=== PATIENT | male | born 1995 | race Caucasian/White ===

== ENCOUNTER 2023-04-28 20:01 | Emergency (ER) | payer OTHER ==
[~2023-04-28] VITALS: Ht 172.7 cm; Wt 99.8 kg
--- NOTE | 2023-04-28 20:20 | ED Chest Pain ---
General Chief Complaint: Chest Pain Stated Complaint: LIGHT HEADED/CLAMMY Source: patient Exam Limitations: no limitations (TEREZA BONILLA APRN) History of Present Illness Date Seen by Provider: Apr 28, 2023 Time Seen by Provider: 20:08 Initial Comments 28-year-old male presents to the ER with complaints of chest pain for the last 3 days. He states his chest feels like he is being squeezed from each side. He states that tonight while eating the pain became worse. He reports he started sweating and then felt cold. [place] as though he had a fever. He also reports shortness of air and nausea. Denies vomiting. States that he has been working out in the heat for the last 3 days. He denies abdominal pain, diarrhea. He has taken some ibuprofen for his chest pain which has helped a little bit. Past medical history includes asthma and anxiety. He denies tobacco, drug, and alcohol use. (TEREZA BONILLA APRN) Allergies and Home Medications Allergies Coded Allergies: No Known Drug Allergies (Unverified , 04/28/23) Patient Home Medication List Home Medication List Reviewed: Yes (TEREZA BONILLA APRN) Hydroxyzine HCl (Hydroxyzine HCl) 25 Mg Tablet, 25 MG PO TID Prescribed by: Tereza Bales on 04/28/232246 Omeprazole (Omeprazole) 20 Mg Capsule.dr, 20 MG PO DAILY Prescribed by: Tereza Bales on 04/28/232246 Review of Systems Review of Systems Constitutional: see HPI (TEREZA BONILLA APRN) Physical Exam Vital Signs Vital Signs - First Documented 04/28/23 20:13 Temp 37.0 Pulse 100 Resp 24 B/P (MAP) 137/99 (112) Pulse Ox 99 (YUN WILL MD) Vital Signs Capillary Refill : (TEREZA BONILLA APRN) Height, Weight, BMI Height: '" Weight: lbs. oz. kg; BMI Method: General Appearance: WD/WN, Mild Distress Neck: Normal Inspection, Supple Respiratory: Lungs Clear, Normal Breath Sounds, No Accessory Muscle Use, No Respiratory Distress, Other (Significant tenderness when palpating entire chest) Cardiovascular: Tachycardia Extremity: Normal Inspection, Normal Range of Motion Neurologic/Psychiatric: Alert, Normal Mood/Affect Skin: Normal Color, Other (Clammy) (IRENE,TEREZA R ALINA) Progress/Results/Core Measures Results/Orders Lab Results Laboratory Tests Test 04/28/23 20:25 04/28/23 20:36 04/28/23 22:14 Range/Units White Blood Count 14.0 H 4.3-11.0 10^3/uL Red Blood Count 5.22 4.30-5.52 10^6/uL Hemoglobin 14.8 13.3-17.7 g/dL Hematocrit 44 40-54 % Mean Corpuscular Volume 84 80-99 fL Mean Corpuscular Hemoglobin 28 25-34 pg Mean Corpuscular Hemoglobin Concent 34 32-36 g/dL Red Cell Distribution Width 13.3 10.0-14.5 % Platelet Count 221 130-400 10^3/uL Mean Platelet Volume 10.1 9.0-12.2 fL Immature Granulocyte % (Auto) 1 % Neutrophils (%) (Auto) 52 42-75 % Lymphocytes (%) (Auto) 34 12-44 % Monocytes (%) (Auto) 9 0-12 % Eosinophils (%) (Auto) 4 0-10 % Basophils (%) (Auto) 1 0-10 % Neutrophils # (Auto) 7.4 1.8-7.8 10^3/uL Lymphocytes # (Auto) 4.7 H 1.0-4.0 10^3/uL Monocytes # (Auto) 1.3 H 0.0-1.0 10^3/uL Eosinophils # (Auto) 0.6 H 0.0-0.3 10^3/uL Basophils # (Auto) 0.1 0.0-0.1 10^3/uL Immature Granulocyte # (Auto) 0.1 0.0-0.1 10^3/uL Neutrophils % (Manual) 47 % Lymphocytes % (Manual) 44 % Monocytes % (Manual) 4 % Eosinophils % (Manual) 4 % Reactive Lymphocytes 1 % Platelet Estimate ADEQUATE Blood Morphology Comment NORMAL Prothrombin Time 13.3 12.2-14.7 SEC INR Comment 1.0 0.8-1.4 Activated Partial Thromboplast Time 32 24-35 SEC D-Dimer 0.28 0.00-0.49 UG/ML Sodium Level 140 135-145 MMOL/L Potassium Level 3.6 3.6-5.0 MMOL/L Chloride Level 107 98-107 MMOL/L Carbon Dioxide Level 22 21-32 MMOL/L Anion Gap 11 5-14 MMOL/L Blood Urea Nitrogen 10 7-18 MG/DL Creatinine 1.11 0.60-1.30 MG/DL Estimat Glomerular Filtration Rate 94 BUN/Creatinine Ratio 9 Glucose Level 88 70-105 MG/DL Calcium Level 9.4 8.5-10.1 MG/DL Corrected Calcium 8.5-10.1 MG/DL Magnesium Level 2.1 1.6-2.4 MG/DL Total Bilirubin 0.7 0.1-1.0 MG/DL Aspartate Amino Transf (AST/SGOT) 28 5-34 U/L Alanine Aminotransferase (ALT/SGPT) 40 0-55 U/L Alkaline Phosphatase 82 40-136 U/L Troponin I < 0.028 <0.028 NG/ML Total Protein 8.4 H 6.4-8.2 GM/DL Albumin 4.6 H 3.2-4.5 GM/DL Influenza Type A (RT-PCR) Not Detected Not Detecte Influenza Type B (RT-PCR) Not Detected Not Detecte SARS-CoV-2 RNA (RT-PCR) Not Detected Not Detecte Urine Opiates Screen POSITIVE H NEGATIVE Urine Oxycodone Screen NEGATIVE NEGATIVE Urine Methadone Screen NEGATIVE NEGATIVE Urine Propoxyphene Screen NEGATIVE NEGATIVE Urine Barbiturates Screen NEGATIVE NEGATIVE Ur Tricyclic Antidepressants Screen NEGATIVE NEGATIVE Urine Phencyclidine Screen NEGATIVE NEGATIVE Urine Amphetamines Screen NEGATIVE NEGATIVE Urine Methamphetamines Screen NEGATIVE NEGATIVE Urine Benzodiazepines Screen NEGATIVE NEGATIVE Urine Cocaine Screen NEGATIVE NEGATIVE Urine Cannabinoids Screen NEGATIVE NEGATIVE (YUN WILL MD) Medications Given in ED Current Medications Medications Dose Ordered Sig/Nickolas Route Start Time Stop Time Status Last Admin Dose Admin Al Hydrox/Mg Hydrox/Simethicone 30 ml ONCE ONCE PO 04/28/23 21:45 04/28/23 21:46 DC 04/28/23 21:49 30 ML Ketorolac Tromethamine 15 mg ONCE ONCE IVP 04/28/23 20:30 04/28/23 20:31 DC 04/28/23 20:28 15 MG Lidocaine HCl 15 ml ONCE ONCE PO 04/28/23 21:45 04/28/23 21:46 DC 04/28/23 21:49 15 ML Lorazepam 0.5 mg ONCE ONCE IVP 04/28/23 20:45 8/19/23 20:46 DC 04/28/23 20:39 0.5 MG Ondansetron HCl 4 mg ONCE ONCE IVP 04/28/23 21:30 04/28/23 21:31 DC 04/28/23 21:19 4 MG Pantoprazole 40 mg ONCE ONCE IV 04/28/23 21:45 04/28/23 21:46 DC 04/28/23 21:50 40 MG (YUN WILL MD) Vital Signs/I&O 04/28/23 04/28/23 20:13 23:00 Temp 37.0 Pulse 100 79 Resp 24 14 B/P (MAP) 137/99 (112) 105/78 Pulse Ox 99 96 04/29/23 00:00 Intake Total 1000 ml Balance 1000 ml (YUN WILL MD) Progress Progress Note : Progress Note Patient seen and evaluated, lying in bed, mild distress. Based on exam and symptoms, cardiac work-up initiated including CBC, CMP, magnesium, coags, troponin, chest x-ray, EKG. Fluids and Toradol ordered. 2109 Labs and x-ray reviewed. CBC shows slightly elevated WBC 14.0. Normal neutrophil and lymphocytes. CMP grossly normal. Magnesium normal troponin negative. Coags normal. COVID and flu negative. Chest x-ray shows no acute cardiopulmonary process. Patient still reports pain. Morphine ordered. Nursing staff states that patient seems very panicked. He is making statements that he believes this pain is going to kill him. 2206 patient later reported that he felt like his chest was on fire, pointed to epigastric/midsternal region when describing the location of the pain. GI cocktail and Protonix ordered. Patient denies any relief in pain. I discussed options for a CT angio or D-dimer test with patient. He would like to do the D-dimer test first. Urine drug screen ordered as well. Patient has been intermittently tachycardic. Tachycardia seems to correlate to when staff goes into the room and talks with patient. When no staff is in the room, patient's heart rate reduces to the upper 90s. 2241 D-dimer negative. Urine drug screen shows opiates, likely related to the morphine given here. Results discussed with patient. Patient was sleeping when I walked into the room. Appears to be more relaxed. Patient seems comfortable with discharge at this time. Patient requesting a prescription for something for anxiety. Will discharge with prescription for omeprazole for possible gastric reflux as well as hydroxyzine for anxiety. Patient instructed to follow-up with primary care provider. Discharge instructions and return precautions provided. (TEREZA BONILLA APRN) Initial ECG Impression Date: Apr 28, 2023 Initial ECG Impression Time: 20:19 Initial ECG Rate: 102 Initial ECG Rhythm: S.Tach Initial ECG Intervals: Normal Initial ECG Impression: Nonspecific Changes Initial ECG Comparisson: No Previous ECG Available Comment Insignificant Q-wave lead III, T wave inversion also noted. No ST elevation noted. (TEREZA BONILLA APRN) Diagnostic Imaging Diagonstic Imaging: Xray Plain Films/CT/US/NM/MRI: chest Comments [facility] [place], [place] NAME: [facility] REC#: [id number] PT STATUS: REG ER : 1995 PHYSICIAN: TEREZA BONILLA APRN ADMIT DATE: 04/28/23/ER Signed Date of Exam:04/28/23 CHEST 1 VIEW, AP/PA ONLY CHEST 1 VIEW, AP/PA ONLY INDICATION: Chest pain. COMPARISON: None. FINDINGS: Lungs: Normal lung volume. No focal consolidation. Stable pulmonary vasculature. Pleura: No pleural effusion or pneumothorax. Heart and Mediastinum: Cardiomediastinal silhouette and great vessels of the thorax are stable. Osseous Structures and Soft Tissues: No acute osseous abnormality. Normal soft tissues. IMPRESSION: No acute cardiopulmonary process. Dictated by: Dictated on workstation # [id number] Dict: 04/28/232045 Trans: 04/28/232045 [facility] [id number] Interpreted by: SUSANA MACDONALD DO Electronically signed by: SUSANA MACDONALD DO 04/28/232045 (TEREZA BONILLA APRN) Departure Impression Primary Impression: Chest pain Additional Impression: Anxiety Disposition: 01 HOME, SELF-CARE Condition: Stable Departure-Patient Inst. Decision time for Depature: 22:44 (TEREZA BONILLA APRN) Referrals: NO,LOCAL PHYSICIAN (PCP/Family) Primary Care Physician Patient Instructions: Chest Pain That Is Not Caused by the Heart (DC) Add. Discharge Instructions: Take omeprazole once a day for the next 4 weeks for gastric reflux Omeprazole takes a while to start working, you may try Tums or Mylanta [id number] in the meantime for gastric reflux. Avoid spicy foods, caffeine, citrus foods, tomatoes, vinegar, chocolate, coffee, alcohol. Take hydroxyzine up to 3 times a day as needed for anxiety, it may make you sleepy. Follow-up with a primary care provider. Return for any new, concerning, or worsening symptoms. All discharge instructions reviewed with patient and/or family. Voiced understanding. Scripts Hydroxyzine HCl (Hydroxyzine HCl) 25 Mg Tablet 25 MG PO TID, #42 TAB 0 Refills Prov: TEREZA BONILLA APRN 04/28/23 Omeprazole (Omeprazole) 20 Mg Capsule.dr 20 MG PO DAILY for 28 Days, #28 CAP 0 Refills Prov: TEREZA BONILLA APRN 04/28/23 ATTENDING PHYSICIAN NOTE: I was physically present as attending physician in the emergency department during the care of this patient. I was briefly consulted on approach to the work-up for this patient. I reviewed labs and imaging. I did not personally interview or examine the patient, and I was not otherwise directly involved in the decision making or delivery of care for this patient. (YUN WILL MD) TEREZA BONILLA APRN Apr 28, 2023 20:20 YUN WILL MD Apr 29, 2023 06:06
[2023-04-28] MEDS ORDERED: KETOROLAC INJ 15 MG/ML VIAL IVP ONE (20:30)
[2023-04-28] MEDS ORDERED: NS IV 1000 ML 1,000 ML IV SCH (20:30)
[2023-04-28 20:31] LABS: BASOPHILS # (AUTO) 0.1 10^3/uL (0.0-0.1); BASOPHILS % (AUTO) 1 % (0-10); EOSINOPHILS # (AUTO) 0.6 10^3/uL (0.0-0.3); EOSINOPHILS % (AUTO) 4 % (0-10); HEMATOCRIT 44 % (40-54); HEMOGLOBIN 14.8 g/dL (13.3-17.7); LYMPHOCYTES # (AUTO) 4.7 10^3/uL (1.0-4.0); LYMPHOCYTES % (AUTO) 34 % (12-44); MEAN CORPUSCULAR HEMOGLOBIN 28 pg (25-34); MEAN CORPUSCULAR HGB CONC 34 g/dL (32-36); MEAN CORPUSCULAR VOLUME 84 fL (80-99); MEAN PLATELET VOLUME 10.1 fL (9.0-12.2); MONOCYTES # (AUTO) 1.3 10^3/uL (0.0-1.0); MONOCYTES % (AUTO) 9 % (0-12); NEUTROPHILS # (AUTO) 7.4 10^3/uL (1.8-7.8); NEUTROPHILS % (AUTO) 52 % (42-75); PLATELET COUNT 221 10^3/uL (130-400)
[2023-04-28 20:44] LABS: PROTHROMBIN TIME PATIENT 13.3 SEC (12.2-14.7)
--- NOTE | 2023-04-28 20:48 | Diagnostic Imaging Report ---
CHEST 1 VIEW, AP/PA ONLY INDICATION: Chest pain. COMPARISON: None. FINDINGS: Lungs: Normal lung volume. No focal consolidation. Stable pulmonary vasculature. Pleura: No pleural effusion or pneumothorax. Heart and Mediastinum: Cardiomediastinal silhouette and great vessels of the thorax are stable. Osseous Structures and Soft Tissues: No acute osseous abnormality. Normal soft tissues. IMPRESSION: No acute cardiopulmonary process. Dictated by: Dictated on workstation # [id number]
[2023-04-28 20:51] LABS: ALANINE AMINOTRANSFERASE 40 U/L (0-55); ALBUMIN 4.6 GM/DL (3.2-4.5); ALKALINE PHOSPHATASE 82 U/L (40-136); BILIRUBIN,TOTAL 0.7 MG/DL (0.1-1.0); BUN/CREATININE RATIO 9; CALCIUM 9.4 MG/DL (8.5-10.1); CARBON DIOXIDE 22 MMOL/L (21-32); CHLORIDE 107 MMOL/L (98-107); CREATININE SERUM 1.11 MG/DL (0.60-1.30); GFR ESTIMATED 94; GLUCOSE 88 MG/DL (70-105); MAGNESIUM 2.1 MG/DL (1.6-2.4); POTASSIUM 3.6 MMOL/L (3.6-5.0); SODIUM 140 MMOL/L (135-145); TOTAL PROTEIN 8.4 GM/DL (6.4-8.2)
[2023-04-28] MEDS ORDERED: morphine INJ 10 MG/ML 1ML (SYR OR VIAL) IVP STA (21:05)
[2023-04-28 21:09] LABS: EOSINOPHILS % (MANUAL) 4 %; LYMPHOCYTES % (MANUAL) 44 %; MONOCYTES % (MANUAL) 4 %; NEUTROPHILS % (MANUAL) 47 %; PLATELET ESTIMATE ADEQUATE; RBC MORPH NORMAL; REACTIVE LYMPHOCYTES 1 %
[2023-04-28] MEDS ORDERED: ONDANSETRON INJECTION 4 MG/2 ML (SDV) ONE (21:18)
[2023-04-28] MEDS ORDERED: ONDANSETRON INJECTION 4 MG/2 ML (SDV) IVP ONE (21:30)
[2023-04-28] MEDS ORDERED: ANTACID SUSPENSION 30 ML UDC PO ONE (21:45)
[2023-04-28] MEDS ORDERED: LIDOCAINE 2% VISCOUS 15 ML UDC PO ONE (21:45)
[2023-04-28] MEDS ORDERED: PANTOPRAZOLE 40 MG (PROTONIX) VIAL IV ONE (21:45)
[2023-04-28 22:30] LABS: AMPHETAMINE SCREEN, URINE NEGATIVE (NEGATIVE); BARBITURATE SCREEN URINE NEGATIVE (NEGATIVE); BENZODIAZEPINES SCREEN URINE NEGATIVE (NEGATIVE); CANNABINOID SCREEN, URINE NEGATIVE (NEGATIVE); COCAINE SCREEN URINE NEGATIVE (NEGATIVE); METHADONE STAT NEGATIVE (NEGATIVE); OPIATE SCREEN URINE POSITIVE (NEGATIVE); OXYCODONE STAT NEGATIVE (NEGATIVE); PROPOXYPHENE STAT NEGATIVE (NEGATIVE); TRICYCLIC ANTIDEPRESSANTS SCRE NEGATIVE (NEGATIVE)
[2023-04-28] MEDS ORDERED: HYDR-700 PO (22:47)
[2023-04-28] MEDS ORDERED: OMEP20CA18 PO (22:47)
[2023-04-28 23:00] VITALS: BP 105/78
== END 2023-04-28 23:05 | disposition home or self-care (01) ==
LOC: ER 20:07
DX: R07.89 Other chest pain (principal); F41.9 Anxiety disorder, unspecified; Z82.5 Family history of asthma and other chronic lower respiratory diseases; Z20.822 Contact with and (suspected) exposure to COVID-19
CPT/HCPCS: 36415; 71045; 80053; 80306; 83735; 84484; 85007; 85027; 85379; 85610; 85730; 87636; 93005; 93041